=== PATIENT | male | born 1985 | race Caucasian/White ===

== ENCOUNTER 2021-03-02 10:03 | Outpatient (RCR) | payer OTHER, SELFPAY | END 2021-03-02 11:52 | disposition home or self-care (01) | LOC: HO.PHPA 10:03 | PROVIDERS: Visit Provider Psychiatry & Neurology Psychiatry | DX: F11.20 Opioid dependence, uncomplicated (principal) ==

== ENCOUNTER 2021-05-18 17:35 | Emergency (ER) | payer MEDICAID, SELFPAY ==
--- NOTE | ~2021-05-18 | XR_ITS ---
EXAMINATION: XR ANKLE, LEFT CLINICAL INFORMATION: Left ankle injury COMPARISON: None TECHNIQUE: AP, lateral, and mortise views of the left ankle. FINDINGS: There is no fracture or dislocation. The ankle mortise is congruent. Mild lateral soft tissue swelling. No ankle joint effusion. XR/XR ankle LT min 3V IMPRESSION: Mild soft tissue swelling without acute osseous abnormality.
[2021-05-18 18:16] VITALS: BP 156/99; PULSE 91; RESP 18; TEMP 36.7; O2SAT 97; BMI 39.4
--- NOTE | 2021-05-18 19:53 | ED.LOWEXIN ---
HPI - Extremity Injury (Lower) General Chief Complaint: Extremity Injury, Lower Stated Complaint: LEFT ANKLE SWOLLEN Time Seen by Provider: 05/18/21 19:50 Source: patient and family Mode of arrival: ambulatory Limitations: no limitations History of Present Illness MD complaint: ankle injury and foot injury Onset (ago): day(s) (Since yesterday) Injury: Left: ankle and foot Type of Injury: other (Twist injury) Place: home Severity: moderate Severity scale (1-10): >10 Relieving factors: nothing Exacerbating factors: weight bearing, movement and palpation Context: other (Near fall) Associated symptoms: swelling and able to partially bear weight Other symptoms: none Related Data Previous Rx's Medication Instructions Recorded acetaminophen 500 mg tablet 1,000 mg PO QID PRN #14 tab 05/18/21 (Tylenol Extra Strength) ibuprofen 800 mg tablet 800 mg PO Q8H PRN #14 tab 05/18/21 Allergies Allergy/AdvReac Type Severity Reaction Status Date / Time No Known Allergies Allergy Verified 05/18/21 18:16 Review of Systems Review of Systems: Constitutional : No Weight loss, No Fever, No Chills, No Night Sweats, No Fatigue, No Malaise ENT/Mouth : No Hearing loss, No Ear Pain, No Nasal Congestion, No Sinus Pain, No Hoarseness, No sore throat, No Rhinorrhea, No Swallowing Difficulty Eyes: No Eye Pain, No Swelling, No Redness, No Foreign Body, No Discharge, No Vision Changes Cardiovascular : No Chest Pain, No SOB, No Dyspnea on Exertion, No Orthopnea, No Edema, No Palpitations Respiratory : No Cough, No Sputum, No Wheezing, No Smoke Exposure, No Dyspnea Gastrointestinal : No Nausea, No Vomiting, No Diarrhea, No Constipation, No abdominal Pain, No Hematochezia, No Melena Genitourinary : no irregular bleeding, No Dysuria, No Urinary Frequency, No Hematuria, No Urinary Incontinence, No Urgency, No Flank Pain, No Urinary Flow Changes, No Hesitancy Musculoskeletal : + joint pain, No Myalgias, No Joint Swelling Skin : No Skin Lesions, No rash Neuro : No Weakness, No Numbness, No Paresthesias, No Loss of Consciousness, No Dizziness, No Headache Psych : No Anxiety/Panic, No Depression, No SI/HI/AH/VH, No Social Issues, Heme/Lymph: No Bruising, No Bleeding,No Lymphadenopathy Endocrine : No Polyuria, No Polydipsia, No Temperature Intolerance Yes all other systems are reviewed and are negative [facility] Past Medical History Attestation statement: The following information was validated with the patient. Social History Social History Household Members: Family Advance Directives: No Advance Directives Information Provided: No Physical Exam Vital Signs: Vital Signs: Last Vital Signs Temp 98.0 F 05/18/21 18:16 Pulse 91 05/18/21 18:16 Resp 18 05/18/21 18:16 BP 156/99 H 05/18/21 18:16 Pulse Ox 97 05/18/21 18:16 Body Mass Index 39.4 vital signs have been reviewed as normal and appeared to be correct. Blood pressure hypertensive 156/99 Heart rate normal. Respiration rate normal. Temperature normal. Oxygen saturation normal. Appearance: Alert. Oriented X3. No acute distress. Head: Normal external exam. Normocephalic. Atraumatic. Eyes: PERRLA. EOMI. Conjunctiva and sclera normal. Eyelids normal. ENT: Pharynx normal. Uvula midline. Moist mucous membranes. Neck: Normal inspection. Neck supple. FROM. CVS: Normal heart rate and rhythm. Respiratory: No respiratory distress. Painless inspiration. Skin: Skin warm and dry. Normal skin color. Normal skin turgor. No rashes/lesions/lacerations noted. Extremities: Patient with tenderness palpation to left ankle at the lateral malleolus and anterior aspect with soft tissue swelling. No obvious ligamentous and/or tendon injury noted. Achilles tendon is intact. Otherwise all other Extremities exhibit normal range of motion and nontender. Neuro: Oriented X 3. No motor deficit. No sensory deficit. Reflexes normal. Normal steady gait. No focal neuro deficits noted. Vascular: + radial pulses/+ 2 distal pedal pulses/+2 dorsalis pedis b/l. Normal cap refill. No cyanosis noted to upper extremity nails and lower extremity toes nails. Course Course Course Narrative: X-ray negative will place an Tommy wrap and provided crutches and treat symptomatic and instructed follow up with Orthopedic if symptoms persist for longer than 1-2 weeks and to return if any new or worsening symptoms follow-up with primary care provider. Patient understands agrees with this plan. MDM - Extremity Injury (Lower) Medical Records Attestation: I reviewed the patient's medical records. Imaging Data Left ankle x-ray: Attestation: I personally reviewed and interpreted this imaging study as follows: Radiologist's impression: FINDINGS: There is no fracture or dislocation. The ankle mortise is congruent. Mild lateral soft tissue swelling. No ankle joint effusion.? XR/XR ankle LT min 3V IMPRESSION: Mild soft tissue swelling without acute osseous abnormality. Procedures Orthopedic Splinting/Casting Injury #1: Side: left Lower Extremity Injury Location: ankle and foot Lower Extremity Immobilizer: Tommy wrap Other Orthopedic Equipment: crutches Discharge Plan Discharge Clinical Impression: Ankle sprain and strain Patient Disposition: Home, Self-Care Instructions: Ankle Sprain (ED), Crutch Instructions (ED), How to Use an Elastic Bandage (ED) Prescriptions: New acetaminophen [Tylenol Extra Strength] 500 mg tablet 1,000 mg PO QID PRN (Reason: fever or pain) Qty: 14 RF: 0 ibuprofen 800 mg tablet 800 mg PO Q8H PRN (Reason: pain) Qty: 14 RF: 0 Referrals: Saw Johnson MD [Physician] - 2 weeks (Call 1-2 weeks if symptoms persist) [facility] [Primary Care Provider] - 2 days Stand Alone Forms: Work/School Release Print Language: Kazakh
[2021-05-18] MEDS: Ibuprofen 800 MG TABLET PO (20:18)
== END 2021-05-18 20:17 | disposition home or self-care (01) ==
PROVIDERS: Emergency Provider Internal Medicine
DX: S93.402A Sprain of unspecified ligament of left ankle, initial encounter (principal); S96.912A Strain of unspecified muscle and tendon at ankle and foot level, left foot, initial encounter; X50.1XXA Overexertion from prolonged static or awkward postures, initial encounter; Y93.9 Activity, unspecified; Y92.9 Unspecified place or not applicable; Y99.9 Unspecified external cause status
CPT/HCPCS: 73610; 99283